=== PATIENT | female | born 1945 | race Caucasian/White ===

== ENCOUNTER 2022-04-09 21:09 | Emergency (ER) | payer OTHER ==
[2022-04-09 21:25] VITALS: BP 145/69; PULSE 60; TEMP 97.8; BMI 22.6
[2022-04-09] MEDS ORDERED: DIPHTH,PERTUSS(ACELL),TET 0.5 ML DISP.SYRIN IM ONE ×2 (21:57→23:09)
== END 2022-04-09 23:21 | disposition home or self-care (01) ==
LOC: JER 21:09
PROC: 0HQLXZZ Repair Left Lower Leg Skin, External Approach (ICD-10-PCS; principal; 2022-04-09)
PROC: 3E0234Z Introduction of Serum, Toxoid and Vaccine into Muscle, Percutaneous Approach (ICD-10-PCS; 2022-04-09)
DX: S81.812A Laceration without foreign body, left lower leg, initial encounter (principal)
CPT/HCPCS: 90715; 99283-25

== ENCOUNTER 2022-04-25 09:56 | Inpatient (IN) | payer OTHER ==
[2022-04-25 10:18] VITALS: BMI 23.0
[2022-04-25] MEDS ORDERED: VANCOMYCIN 1,000 MG in DEXTROSE 5%-WATER - 250 ML IVPB ONE (13:39)
[2022-04-25 14:36] LABS: BASO % 0.9 % (0-2.0); EOS % 1.8 % (0-4.5); HEMATOCRIT 35.9 % (32.4-45.2); HEMOGLOBIN 12.1 GM/dL (10.7-15.3); MCH 33.3 pg (25.7-33.7); MCHC 33.9 g/dl (32.0-36.0); MEAN CELL VOLUME 98.4 fl (80-96); MONO % 11.5 % (3.8-10.2); NEUT % 56.8 % (42.8-82.8); PLATELET COUNT 337 10^3/uL (134-434); RBC 3.64 M/mm3 (3.60-5.2); WHITE BLOOD COUNT 6.5 K/mm3 (4.0-10.0)
[2022-04-25 14:56] LABS: ALBUMIN 3.6 g/dl (3.4-5.0); CALCIUM 9.4 mg/dL (8.5-10.1)
[2022-04-25 15:00] LABS: CREATININE 0.6 mg/dL (0.55-1.3)
[2022-04-25 15:01] LABS: BILIRUBIN,TOTAL 0.5 mg/dL (0.2-1); TOT PROT 7.2 g/dl (6.4-8.2)
[2022-04-25] MEDS: AMPICILLIN NA/SULBACTAM NA 3 GM in SODIUM CHLORIDE 100 ML IVPB ONE ×2 (15:18→18:02)
[2022-04-25] MEDS ORDERED: CLINDAMYCIN 600MG PREMIX IVPB 600 MG/50 ML BAG IVPB ONE (18:12)
[2022-04-25] MEDS: CLINDAMYCIN 600MG PREMIX IVPB 600 MG/50 ML BAG IVPB SCH (19:13)
[2022-04-25] MEDS ORDERED: ATORVASTATIN CA 20 MG TABLET (FP) ONE (22:34)
[2022-04-25] MEDS: ATORVASTATIN CA 20 MG TABLET (FP) PO SCH ×2 (22:35→22:40)
[2022-04-25] MEDS: AMPICILLIN NA/SULBACTAM NA 1.5 GM in SODIUM CHLORIDE 100 ML IVPB SCH (22:46)
[2022-04-26] MEDS: CLINDAMYCIN 600MG PREMIX IVPB 600 MG/50 ML BAG IVPB SCH ×3 (01:34→17:31)
[2022-04-26] MEDS: AMPICILLIN NA/SULBACTAM NA 1.5 GM in SODIUM CHLORIDE 100 ML IVPB SCH ×4 (03:30→20:08)
[2022-04-26] MEDS ORDERED: POTASSIUM CHLORIDE TABS 20 MEQ TABLET.ER (FP) PO ONE (06:58)
[2022-04-26] MEDS ORDERED: AMPICILLIN NA/SULBACTAM NA 1.5 GM VIAL ONE ×3 (08:47→20:04)
[2022-04-26] MEDS ORDERED: SODIUM CHLORIDE 100 ML IVPB ONE ×3 (08:47→20:04)
[2022-04-26] MEDS: SERTRALINE HCL 50 MG TABLET (FP) PO SCH (09:21)
[2022-04-26] MEDS ORDERED: ACETAMINOPHEN 325 MG TABLET (FP) PO ONE (09:43)
[2022-04-26 11:39] LABS: BASO % 0.9 % (0-2.0); EOS % 3.1 % (0-4.5); HEMATOCRIT 33.2 % (32.4-45.2); HEMOGLOBIN 11.5 GM/dL (10.7-15.3); LYMPH % 29.4 % (8-40); MCH 34.1 pg (25.7-33.7); MCHC 34.8 g/dl (32.0-36.0); MEAN CELL VOLUME 98.1 fl (80-96); MEAN PLT VOLUME 6.6 fl (7.5-11.1); MONO % 17.3 % (3.8-10.2); NEUT % 49.3 % (42.8-82.8); PLATELET COUNT 301 10^3/uL (134-434); RBC 3.38 M/mm3 (3.60-5.2); WHITE BLOOD COUNT 5.7 K/mm3 (4.0-10.0)
[2022-04-26 11:57] LABS: BLOOD UREA NITROGEN 10.3 mg/dL (7-18); CALCIUM 9.1 mg/dL (8.5-10.1)
[2022-04-26 12:01] LABS: CREATININE 0.4 mg/dL (0.55-1.3)
[2022-04-26] MEDS ORDERED: LORazepam 2 MG TABLET PO PRN (15:57)
[2022-04-26] MEDS ORDERED: ENOXAPARIN NA (PORCINE) 40 MG/0.4 ML DISP.SYRIN SQ SCH (16:15)
[2022-04-26] MEDS: ENOXAPARIN NA (PORCINE) 40 MG/0.4 ML DISP.SYRIN SQ SCH (18:27)
[2022-04-26] MEDS: ATORVASTATIN CA 20 MG TABLET (FP) PO SCH (21:38)
[2022-04-27] MEDS ORDERED: AMPICILLIN NA/SULBACTAM NA 1.5 GM VIAL ONE ×3 (01:11→15:19)
[2022-04-27] MEDS ORDERED: SODIUM CHLORIDE 100 ML IVPB ONE ×3 (01:11→15:19)
[2022-04-27] MEDS: CLINDAMYCIN 600MG PREMIX IVPB 600 MG/50 ML BAG IVPB SCH ×3 (01:27→17:43)
[2022-04-27] MEDS: AMPICILLIN NA/SULBACTAM NA 1.5 GM in SODIUM CHLORIDE 100 ML IVPB SCH ×3 (03:41→15:41)
[2022-04-27 08:49] LABS: BASO % 1.1 % (0-2.0); EOS % 4.2 % (0-4.5); HEMATOCRIT 35.1 % (32.4-45.2); HEMOGLOBIN 11.9 GM/dL (10.7-15.3); LYMPH % 29.8 % (8-40); MCH 33.3 pg (25.7-33.7); MCHC 33.9 g/dl (32.0-36.0); MEAN CELL VOLUME 98.2 fl (80-96); MEAN PLT VOLUME 6.8 fl (7.5-11.1); MONO % 15.2 % (3.8-10.2); NEUT % 49.7 % (42.8-82.8); PLATELET COUNT 314 10^3/uL (134-434); RBC 3.58 M/mm3 (3.60-5.2); RDW 13.2 % (11.6-15.6); WHITE BLOOD COUNT 4.5 K/mm3 (4.0-10.0)
[2022-04-27 09:10] LABS: ALBUMIN 3.2 g/dl (3.4-5.0); CALCIUM 9.6 mg/dL (8.5-10.1)
[2022-04-27 09:13] LABS: CREATININE 0.5 mg/dL (0.55-1.3)
[2022-04-27 09:15] LABS: BILIRUBIN,TOTAL 0.5 mg/dL (0.2-1); TOT PROT 6.6 g/dl (6.4-8.2)
[2022-04-27] MEDS: SERTRALINE HCL 50 MG TABLET (FP) PO SCH (09:27)
[2022-04-27] MEDS: ENOXAPARIN NA (PORCINE) 40 MG/0.4 ML DISP.SYRIN SQ SCH (09:27)
[2022-04-27] MEDS ORDERED: LACTOBACILLUS ACIDOPHILUS 1 TABLET PO SCH (11:00)
[2022-04-27 18:56] VITALS: BP 155/76; PULSE 59; TEMP 98.3
== END 2022-04-27 20:12 | disposition left against medical advice (07) | DRG 603 ==
LOC: JER 09:56 → JERBED 14:36 → J5S 23:03
PROVIDERS: ADMIT Internal Medicine; ATTEND Internal Medicine
DX: L03.116 Cellulitis of left lower limb (principal); F41.9 Anxiety disorder, unspecified; E78.5 Hyperlipidemia, unspecified; F10.10 Alcohol abuse, uncomplicated; I10 Essential (primary) hypertension; Z53.29 Procedure and treatment not carried out because of patient's decision for other reasons
CPT/HCPCS: 36415; 73590-TC-LT-FY; 80048; 80053; 85025; 87040; 93005; 93010; 99285-25; C9803-CS; U0003; U0005